=== PATIENT | female | born 1980 | race Caucasian/White ===

== ENCOUNTER 2016-09-22 16:57 | Emergency (ER) | payer MEDICAID ==
[~2016-09-22 16:57] MED LIST: AMOXICILLIN500 M2 PO; BACTRIM DS TAB1 EAC2 PO; FLEXERIL 10MG PO; LAMICTAL100 M2; LATUDA20 MG PO; LYRICA100 MG PO; NORCO 5-325 TA1 EACH PO; NORCO 5/325 TAB1 TAB PO; XANAX1 MG PO; [UNRECOGNIZED DRUG - REMARK]
[2016-09-22] MEDS ORDERED: CLONAZEPAM0.5 M2 PO (19:20)
[2016-09-22] MEDS ORDERED: THIOTHIXENE PO (19:21)
[2016-09-22] MEDS ORDERED: HYDROXYZINE HCL50 M1 PO (19:22)
[2016-09-22] MEDS ORDERED: SERTRALINE HCL100 M5 PO (19:22)
[2016-09-22] MEDS ORDERED: VALTREX500 M1 PO (19:52)
[2016-09-22] MEDS ORDERED: NORCO 5-325 TA1 EACH PO (19:52)
== END 2016-09-22 20:14 ==
LOC: EDMED 16:57
DX: B02.9 Zoster without complications (principal); F31.9 Bipolar disorder, unspecified; K21.9 Gastro-esophageal reflux disease without esophagitis; Z90.49 Acquired absence of other specified parts of digestive tract; F17.200 Nicotine dependence, unspecified, uncomplicated

== ENCOUNTER 2016-09-24 17:21 | Emergency (ER) | payer MEDICAID ==
[~2016-09-24 17:21] MED LIST changes: +CLONAZEPAM0.5 M2 PO; +HYDROXYZINE HCL50 M1 PO; +SERTRALINE HCL100 M5 PO; +THIOTHIXENE PO; +VALTREX500 M1 PO
[2016-09-24] MEDS ORDERED: OXYCODONE-ACET1 EAC3 PO (18:48)
== END 2016-09-24 18:59 ==
LOC: EDMED 17:21
DX: B02.9 Zoster without complications (principal); F31.9 Bipolar disorder, unspecified; F43.10 Post-traumatic stress disorder, unspecified; F17.210 Nicotine dependence, cigarettes, uncomplicated; Z79.899 Other long term (current) drug therapy
CPT/HCPCS: J1170

== ENCOUNTER 2016-10-05 22:45 | Emergency (ER) | payer MEDICAID ==
[~2016-10-05 22:45] MED LIST changes: +OXYCODONE-ACET1 EAC3 PO
[2016-10-06] MEDS ORDERED: GABAPENTIN PO (00:26)
== END 2016-10-06 00:50 ==
LOC: EDMED 22:45
DX: B02.29 Other postherpetic nervous system involvement (principal); M25.512 Pain in left shoulder; R51 Headache; F17.210 Nicotine dependence, cigarettes, uncomplicated
CPT/HCPCS: J1170